=== PATIENT | female | born 1985 | race Hispanic/Latino ===

== ENCOUNTER 2022-07-23 21:46 | Day surgery (SDC) | payer BC ==
[2022-07-23] MEDS ORDERED: hydrALAZINE 20 MG/ML VIAL SLOW IVP PRN (23:00)
== END 2022-07-23 23:20 | disposition home or self-care (01) ==
LOC: CSHLD/OP 21:46
PROVIDERS: ATTEND Obstetrics & Gynecology
DX: O26.893 Other specified pregnancy related conditions, third trimester (principal); R19.8 Other specified symptoms and signs involving the digestive system and abdomen; O34.13 Maternal care for benign tumor of corpus uteri, third trimester; O99.113 Other diseases of the blood and blood-forming organs and certain disorders involving the immune mechanism complicating pregnancy, third trimester; D68.2 Hereditary deficiency of other clotting factors; O99.613 Diseases of the digestive system complicating pregnancy, third trimester; K21.9 Gastro-esophageal reflux disease without esophagitis; O99.353 Diseases of the nervous system complicating pregnancy, third trimester; G43.909 Migraine, unspecified, not intractable, without status migrainosus; Z3A.38 38 weeks gestation of pregnancy; Z79.899 Other long term (current) drug therapy
CPT/HCPCS: 99282

== ENCOUNTER 2022-07-26 22:31 | Day surgery (SDC) | payer BC ==
[2022-07-26 22:54] VITALS: BMI 29.7
[2022-07-27] MEDS ORDERED: hydrALAZINE 20 MG/ML VIAL SLOW IVP PRN (00:58)
[2022-07-27] MEDS ORDERED: Acetaminophen 500 MG TAB PO SCH (02:30)
[2022-07-27] MEDS ORDERED: Promethazine HCl 25 MG/ML VIAL IM SCH (07:45)
[2022-07-27] MEDS ORDERED: Meperidine HCl/PF 25 MG/ML VIAL IM SCH (08:00)
== END 2022-07-27 08:45 | disposition home or self-care (01) ==
LOC: CSHLD/OP 22:31
PROVIDERS: ATTEND Obstetrics & Gynecology
DX: O47.1 False labor at or after 37 completed weeks of gestation (principal); Z3A.38 38 weeks gestation of pregnancy; O99.113 Other diseases of the blood and blood-forming organs and certain disorders involving the immune mechanism complicating pregnancy, third trimester; D68.2 Hereditary deficiency of other clotting factors; Z98.890 Other specified postprocedural states
CPT/HCPCS: J2175; J2550

== ENCOUNTER 2022-07-27 20:47 | Inpatient (IN) | payer BC ==
[~2022-07-27 20:47] MED LIST: Bupivacaine 0.25% HCL 30 ML VIAL ONE
[2022-07-27] MEDS ORDERED: Lidocaine 1% (PF) 30 ML VIAL SC PRN (21:19)
[2022-07-27] MEDS ORDERED: Ibuprofen 800 MG TAB PO PRN (21:19)
[2022-07-27] MEDS ORDERED: hydrALAZINE 20 MG/ML VIAL SLOW IVP PRN (21:19)
[2022-07-27] MEDS ORDERED: Butorphanol Tartrate 1 MG/ML VIAL SLOW IVP PRN (21:19)
[2022-07-27] MEDS ORDERED: Ondansetron PF 4 MG/2 ML Vial IVP PRN ×2 (21:19→23:39)
[2022-07-27] MEDS ORDERED: HYDROcodone/Acetaminophen 5/325 mg Tablet PO PRN ×2 (21:19)
[2022-07-27] MEDS ORDERED: Promethazine HCl 25 MG/ML VIAL IM PRN ×2 (21:19→23:39)
[2022-07-27] MEDS ORDERED: Lactated Ringer's 1,000 ML IV SCH ×2 (21:30)
[2022-07-27] MEDS ORDERED: NS w/ Oxytocin 30 units 500 ML IV SCH (21:30)
[2022-07-27 21:45] VITALS: BMI 31.2
[2022-07-27] MEDS ORDERED: Fentanyl 2 mcg/Bup 0.1% Cadd 100 ML ONE (21:46)
[2022-07-27] MEDS ORDERED: Tranexamic Acid 1,000 MG/10 ML VIAL ONE (22:47)
[2022-07-27 22:52] LABS: Hemoglobin 11.7 g/dL (12.0-15.5); Mean Corpuscular HGB CONC 33.3 g/dL (32.0-36.0); Mean Corpuscular Hemoglobin 26.8 pg (27.0-33.0); Mean Corpuscular Volume 80.3 fl (81.6-98.3); Mean Platelet Volume 11.1 fl (7.4-10.4); Platelet Count 260 10x3/uL (150-450); RBC Distribution Width 14.9 % (11.5-14.5); Red Blood Cell (RBC) Count 4.37 10x6/uL (3.90-5.03); White Blood Cell (WBC) Count 13.8 10x3/uL (3.5-10.5)
[2022-07-27 23:15] LABS: HBSAg Index 0.11 S/CO (0-0.99); Hep B Surf Ag Non-Reactive S/CO (NonReactive)
[2022-07-27 23:16] LABS: Syphilis Antibody Nonreactive (Nonreactive); Syphilis Antibody Index 0.03 S/CO (<1.00 Non-Reactive)
[2022-07-27] MEDS ORDERED: ePHEDrine Sulfate 50 MG/10 ML VIAL SLOW IVP PRN (23:39)
[2022-07-27] MEDS ORDERED: Lactated Ringer's 500 ML IV PRN (23:39)
[2022-07-27] MEDS ORDERED: Naloxone HCl 0.4 mg/ml Vial IVP PRN ×2 (23:39)
[2022-07-27] MEDS ORDERED: Acetaminophen 325 MG TAB PO PRN (23:39)
[2022-07-27] MEDS ORDERED: Moisturizing Cream (Eucerin) 113 GM JAR TOP PRN (23:39)
[2022-07-27] MEDS ORDERED: diphenhydrAMINE 50 MG/ML VIAL IVP PRN (23:39)
[2022-07-27] MEDS ORDERED: Fentanyl 2 mcg/Bupivacaine 0.1% Cassette 100 ML EPIDURAL SCH (23:45)
[2022-07-27] MEDS ORDERED: Communication Order-Pharmacy FS SCH (23:45)
[2022-07-28 02:44] LABS: SARS-CoV-2 NAA Rapid Test Not Detected (NotDetected)
[2022-07-28] MEDS ORDERED: Misoprostol 200 MCG TAB ONE (04:10)
[2022-07-28] MEDS ORDERED: Carboprost 250 MCG/ML AMP ONE (04:10)
[2022-07-28] MEDS ORDERED: Methylergonovine 0.2 MG/ML VIAL ONE (04:10)
[2022-07-28] MEDS: NS w/ Oxytocin 30 units 500 ML IV SCH ×2 (04:55→05:19)
[2022-07-28] MEDS ORDERED: hydrALAZINE 20 MG/ML VIAL SLOW IVP PRN (06:47)
[2022-07-28] MEDS ORDERED: Boostrix 0.5 ML (Tdap) VIAL (>/=7 yrs of age) IM ONE (06:47)
[2022-07-28] MEDS ORDERED: Milk Of Magnesia 30 ML UDCUP PO PRN (06:47)
[2022-07-28] MEDS ORDERED: Bisacodyl 10 MG SUPP PR PRN (06:47)
[2022-07-28] MEDS ORDERED: Lanolin Ointment 7 GM TUBE TOP PRN (06:47)
[2022-07-28] MEDS ORDERED: Promethazine HCl 25 MG/ML VIAL IM PRN (06:47)
[2022-07-28] MEDS ORDERED: Ibuprofen 800 MG TAB PO SCH ×3 (06:47→18:00)
[2022-07-28] MEDS ORDERED: diphenhydrAMINE 25 MG CAP PO PRN (06:47)
[2022-07-28] MEDS ORDERED: Zolpidem Tartrate 5 MG TAB PO PRN (06:47)
[2022-07-28] MEDS ORDERED: Ondansetron PF 4 MG/2 ML Vial IVP PRN (06:47)
[2022-07-28] MEDS ORDERED: NS w/ Oxytocin 30 units 500 ML IV SCH (06:47)
[2022-07-28] MEDS ORDERED: HYDROcodone/Acetaminophen 5/325 mg Tablet PO PRN (06:47)
[2022-07-28] MEDS ORDERED: Benzocaine-Menthol 82.5 ML CAN TOP PRN (06:47)
[2022-07-28] MEDS: Docusate 100 MG CAP PO SCH ×2 (09:46→21:34)
[2022-07-28] MEDS: Prenatal Vitamin 1 TAB PO SCH (09:46)
[2022-07-28] MEDS: HYDROcodone/Acetaminophen 5/325 mg Tablet PO PRN (14:09)
[2022-07-28] MEDS: Ibuprofen 800 MG TAB PO SCH (17:29)
[2022-07-29] MEDS: Ibuprofen 800 MG TAB PO SCH ×3 (01:50→17:59)
[2022-07-29] MEDS: Docusate 100 MG CAP PO SCH ×2 (10:36→21:25)
[2022-07-29] MEDS: Prenatal Vitamin 1 TAB PO SCH (10:36)
[2022-07-29] MEDS: HYDROcodone/Acetaminophen 5/325 mg Tablet PO PRN (13:51)
[2022-07-29 20:03] VITALS: TEMP 98.1
[2022-07-30] MEDS: Ibuprofen 800 MG TAB PO SCH ×2 (01:27→11:22)
[2022-07-30 07:41] VITALS: BP 89/54
[2022-07-30] MEDS: Docusate 100 MG CAP PO SCH (08:09)
[2022-07-30] MEDS: Prenatal Vitamin 1 TAB PO SCH (08:09)
[2022-07-30] MEDS: HYDROcodone/Acetaminophen 5/325 mg Tablet PO PRN (08:09)
== END 2022-07-30 11:25 | disposition home or self-care (01) | DRG 806 ==
LOC: CSHLD/OP 20:47 → CSHLD 21:34 → CSHPP 07-28 08:14
PROVIDERS: ADMIT Obstetrics & Gynecology; ATTEND Obstetrics & Gynecology
PROC: 10E0XZZ Delivery of Products of Conception, External Approach (ICD-10-PCS; principal; 2022-07-28)
PROC: 0KQM0ZZ Repair Perineum Muscle, Open Approach (ICD-10-PCS; 2022-07-28)
DX: O34.13 Maternal care for benign tumor of corpus uteri, third trimester (principal); D68.2 Hereditary deficiency of other clotting factors; Z37.0 Single live birth; O99.12 Other diseases of the blood and blood-forming organs and certain disorders involving the immune mechanism complicating childbirth; O70.1 Second degree perineal laceration during delivery; Z3A.38 38 weeks gestation of pregnancy; Z20.822 Contact with and (suspected) exposure to COVID-19; D25.9 Leiomyoma of uterus, unspecified; Z90.49 Acquired absence of other specified parts of digestive tract
CPT/HCPCS: 36415; 51702; 85027; 86780; 86850; 86900; 86901; 87340; 96372; 99283; 99285; J0595; J2175; J2550; J2590; S0020; U0002

== ENCOUNTER 2022-11-17 13:13 | Outpatient (CLI) | payer BC ==
[~2022-11-17 13:13] MED LIST changes: -Bupivacaine 0.25% HCL 30 ML VIAL ONE; +Iopamidol 300 61% 100 ML VIAL FS ONE
== END 2022-11-17 13:14 | disposition home or self-care (01) ==
LOC: CSHCT 13:13
PROVIDERS: ATTEND Surgery
DX: L90.5 Scar conditions and fibrosis of skin (principal); J90 Pleural effusion, not elsewhere classified; N20.0 Calculus of kidney; N28.1 Cyst of kidney, acquired; D17.71 Benign lipomatous neoplasm of kidney; D25.9 Leiomyoma of uterus, unspecified
CPT/HCPCS: 74177; Q9967

== ENCOUNTER 2024-10-14 10:08 | Outpatient (CLI) | payer BC | END 2024-10-14 10:09 | disposition home or self-care (01) | LOC: CSHMAMMO 10:08 | PROVIDERS: ATTEND Internal Medicine | DX: Z13.820 Encounter for screening for osteoporosis (principal); Z78.0 Asymptomatic menopausal state; N80.9 Endometriosis, unspecified; M85.851 Other specified disorders of bone density and structure, right thigh; M85.852 Other specified disorders of bone density and structure, left thigh | CPT/HCPCS: 77080 ==